=== PATIENT | female | born 1995 | race African-American/Black ===

== ENCOUNTER 2017-02-16 04:19 | Emergency (ER) | payer OTHER, SELFPAY ==
[2017-02-16] MEDS ORDERED: Ondansetron ODT 4 MG TAB ONE (04:51)
[2017-02-16 05:02] LABS: Bilirubin Negative (Negative); Blood, Urine Moderate (Negative); Glucose, Urine (Dipstick) Negative (Negative); Nitrite Negative (Negative); Protein, Urine (Dipstick) Negative (Neg-Trace); pH, Urine 6.5 (5.0-9.0)
[2017-02-16 05:12] LABS: Clarity Hazy (Clear); Leukocyte Trace (Negative); Specific Gravity, Urine 1.028 (1.002-1.036)
[2017-02-16 05:13] LABS: Bacteria/HPF 3+ HPF (None Seen); Pregnancy Test - Urine (BHCG) NEGATIVE (NEGATIVE); Pregu Control Bar Appear? YES (CONTROL BAR); Renal Epithelial 0-3 HPF (0-3); Specific Gravity 1.028 (1.002-1.036); Transitional Epithelial 0-3 HPF (0-3); Yeast-All Forms 1+ HPF (None Seen)
[2017-02-16] MEDS ORDERED: Sulfameth/Trimethoprim DS 800-160mg TAB ONE (05:27)
== END 2017-02-16 05:30 | disposition home or self-care (01) ==
LOC: MADERS 04:19
DX: N39.0 Urinary tract infection, site not specified (principal); E11.9 Type 2 diabetes mellitus without complications; Z79.84 Long term (current) use of oral hypoglycemic drugs
CPT/HCPCS: 36416; 81001; 81025; 87077; 87086; 99284; Q0162

== ENCOUNTER 2017-03-28 14:30 | Emergency (ER) | payer OTHER, SELFPAY ==
[2017-03-28 15:11] LABS: Bilirubin Negative (Negative); Blood, Urine Negative (Negative); Clarity Hazy (Clear); Glucose, Urine (Dipstick) Negative (Negative); Leukocyte Trace (Negative); Nitrite Negative (Negative); Protein, Urine (Dipstick) Negative (Neg-Trace); RBC/HPF 0-3 HPF (0-3); Specific Gravity, Urine 1.025 (1.005-1.030); Urobilinogen 0.2 mg/dL (0.2-1.0); pH, Urine 7.5 (5.0-9.0)
[2017-03-28 15:12] LABS: Bacteria/HPF 3+ HPF (None Seen); Pregnancy Test - Urine (BHCG) Negative (Negative); Pregu Control Background? CLEAR/WHITE (CLR/WHITE); Pregu Control Bar Appear? YES (CONTROL BAR); Specific Gravity 1.025 (1.002-1.036); Transitional Epithelial 0-3 HPF (0-3); Yeast-All Forms 1+ HPF (None Seen)
== END 2017-03-28 15:27 | disposition home or self-care (01) ==
LOC: MADERS 14:30
DX: N39.0 Urinary tract infection, site not specified (principal); R03.0 Elevated blood-pressure reading, without diagnosis of hypertension
CPT/HCPCS: 36416; 81003; 81015; 81025; 87086; 99283

== ENCOUNTER 2017-05-10 21:26 | Emergency (ER) | payer OTHER ==
[2017-05-10] MEDS ORDERED: Naproxen 500 MG TAB ONE (22:20)
[2017-05-10] MEDS ORDERED: Ondansetron ODT 4 MG TAB ONE (22:20)
[2017-05-10] MEDS ORDERED: Metoclopramide HCl 10 MG TAB ONE (22:20)
[2017-05-10 23:39] LABS: Clarity Clear (Clear); Leukocyte Negative (Negative); Nitrite Negative (Negative); Protein, Urine (Dipstick) Negative (Neg-Trace); pH, Urine 5.5 (5.0-9.0)
[2017-05-10 23:40] LABS: Bilirubin Negative (Negative); Blood, Urine Trace (Negative); Glucose, Urine (Dipstick) >=1000 mg/dL (Negative); RBC/HPF 0-3 HPF (0-3); WBC/HPF 0-3 HPF (0-3)
[2017-05-10 23:41] LABS: Bacteria/HPF Rare-Few HPF (None Seen); Squamous Epithelial 0-3 HPF (0-3)
== END 2017-05-10 22:32 | disposition home or self-care (01) ==
LOC: MADERS 21:26
DX: N94.6 Dysmenorrhea, unspecified (principal); R19.7 Diarrhea, unspecified; R11.2 Nausea with vomiting, unspecified; E11.9 Type 2 diabetes mellitus without complications; Z79.84 Long term (current) use of oral hypoglycemic drugs
CPT/HCPCS: 81001; 87077; 87086; 99284; Q0162

== ENCOUNTER → 2017-08-27 | Emergency (ER) | payer OTHER, SELFPAY ==
[~2017-08-27] MED LIST: Acetaminophen/Codeine 30-300mg Tablet ONE; Benzonatate 100 MG CAP ONE; Dexamethasone 4 MG TAB ONE; Ibuprofen 800 MG TAB ONE
== END ==
LOC: MADERS 15:27
DX: J20.8 Acute bronchitis due to other specified organisms (principal); J06.9 Acute upper respiratory infection, unspecified; E11.9 Type 2 diabetes mellitus without complications; Z79.84 Long term (current) use of oral hypoglycemic drugs
CPT/HCPCS: 99283; J8540

== ENCOUNTER 2017-08-30 19:54 | Emergency (ER) | payer SELFPAY ==
[2017-08-30] MEDS ORDERED: cefTRIAXone\\ROCEPHIN 1 GM VIAL ONE (20:57)
[2017-08-30] MEDS ORDERED: Bacitracin Zinc 1 Packet ONE (21:56)
== END 2017-08-30 21:25 | disposition home or self-care (01) ==
LOC: MADERS 19:54
DX: J20.9 Acute bronchitis, unspecified (principal); E11.65 Type 2 diabetes mellitus with hyperglycemia; Z79.84 Long term (current) use of oral hypoglycemic drugs
CPT/HCPCS: 96372; J0696; J2001

== ENCOUNTER 2019-11-30 09:25 | Outpatient (CLI) | payer OTHER ==
--- NOTE | 2019-11-30 09:56 | RAD ---
Exam: Lumbar spine 3 views HISTORY: Chronic pain FINDINGS: 5 lumbar type vertebra. Lumbar spine vertebral body height is maintained. No fracture. No s fahad listhesis or spondylolysis. Disc space heights are preserved Visualized bony pelvis and sacrum are intact IMPRESSION: Unremarkable 3 views lumbar spine
== END 2019-11-30 09:26 | disposition home or self-care (01) ==
LOC: MADRAD 09:25
PROVIDERS: ATTEND Family Medicine
DX: M54.42 Lumbago with sciatica, left side (principal)
CPT/HCPCS: 72100

== ENCOUNTER 2019-12-19 19:35 | Emergency (ER) | payer OTHER ==
[2019-12-19] MEDS ORDERED: Ketorolac Tromethamine 60 MG/2 ML VIAL ONE (20:03)
== END 2019-12-19 20:22 | disposition home or self-care (01) ==
LOC: MADERS 19:35
DX: G43.909 Migraine, unspecified, not intractable, without status migrainosus (principal); E11.9 Type 2 diabetes mellitus without complications; F41.9 Anxiety disorder, unspecified; Z79.899 Other long term (current) drug therapy
CPT/HCPCS: 96372; 99283; J1885

== ENCOUNTER 2020-05-04 13:23 | Emergency (ER) | payer OTHER ==
[2020-05-04] MEDS ORDERED: Sodium Chloride 0.9% 1,000 ML ONE ×2 (14:36→16:42)
[2020-05-04 14:58] LABS: #Lymphocytes 0.7 thou/uL (1.20-3.40); #Monocytes 0.2 thou/uL (0.11-0.59); #Neutrophils 6.8 thou/uL (1.40-6.50); %Basophils 0.5 % (0.0-1.0); %Monocytes 2.7 % (0.0-10.0); %Neutrophils 87.8 % (42.0-75.0); Hemoglobin 14.4 g/dL (12.0-16.0); Mean Corpuscular HGB CONC 30.4 g/dL (32.0-36.0); Mean Corpuscular Hemoglobin 27.9 pg (27.0-31.0); Mean Corpuscular Volume 91.9 fL (78.0-98.0); Mean Platelet Volume 9.2 fL (7.4-10.4); Platelet Count 223 thou/uL (130-400); RBC Distribution Width 11.9 % (11.5-14.5); Red Blood Cell (RBC) Count 5.16 mill/uL (4.20-5.40); White Blood Cell (WBC) Count 7.8 thou/uL (4.8-10.8)
[2020-05-04 15:14] LABS: CRP (Inflammatory) 20.46 mg/dL (= or < 0.5)
[2020-05-04 15:16] LABS: ALT (SGPT) 15 U/L (8-55); AST (SGOT) 19 U/L (5-34); Albumin 3.8 g/dL (3.5-5.0); Alkaline Phosphatase 67 U/L (40-110); Anion Gap 20 mmol/L (10-20); BUN (Urea Nitrogen) 10 mg/dL (7.0-18.7); Bilirubin, Total 0.6 mg/dL (0.2-1.2); CK (CPK) 38 U/L (29-168); Calc. Creatinine Clearance 0 mL/min (70-130); Calcium 8.2 mg/dL (7.8-10.44); Carbon Dioxide 20 mmol/L (22-29); Chloride 97 mmol/L (98-107); Estimated GFR-MDRD 83; Globulin 3.7 g/dL (2.4-3.5); Glucose 389 mg/dL (70-105); Lipase 22 U/L (8-78); Potassium 3.4 mmol/L (3.5-5.1); Protein, Total 7.5 g/dL (6.0-8.3); Sodium 134 mmol/L (136-145)
[2020-05-04] MEDS ORDERED: Ondansetron PF 4 MG/2 ML Vial ONE (15:31)
[2020-05-04] MEDS ORDERED: Ketorolac Tromethamine 30 MG/ML VIAL ONE (15:31)
--- NOTE | 2020-05-04 15:35 | RAD ---
CHEST ONE VIEW: 05/04/20 HISTORY: Dyspnea. FINDINGS: Diminished lung volumes. Patchy interstitial and alveolar opacity suggesting multilobar infiltrate. N o pneumothorax or pleural effusion. IMPRESSION: Diminished lung volumes. Multilobar infiltrates are suspected. Continued surveillance is recommended. POS: [facility]
[2020-05-04] MEDS ORDERED: Azithromycin 500 MG VIAL ONE (16:42)
[2020-05-04] MEDS ORDERED: Sodium Chloride 0.9% 100 ML ONE (16:42)
[2020-05-04] MEDS ORDERED: cefTRIAXone\\ROCEPHIN 2 GM VIAL ONE (16:42)
[2020-05-04] MEDS ORDERED: Sodium Chloride 0.9% 250 ML 250 ML ONE (16:42)
== END 2020-05-04 17:40 | disposition short-term general hospital (02) ==
LOC: MADERS 13:23
DX: J18.9 Pneumonia, unspecified organism (principal); E86.0 Dehydration; R09.02 Hypoxemia; Z20.828 Contact with and (suspected) exposure to other viral communicable diseases; E11.9 Type 2 diabetes mellitus without complications; F41.9 Anxiety disorder, unspecified; Z79.84 Long term (current) use of oral hypoglycemic drugs
CPT/HCPCS: 36415; 71045; 80053; 82150; 82550; 83605; 83690; 84443; 85025; 86140; 87040; 87635; 96361; 96365; 96367; 96372; 96375; J0456; J0696; J1885; J2405; J3490; J7050; U0003

== ENCOUNTER 2021-05-15 09:00 | Outpatient (CLI) | payer BC ==
[2021-05-16 20:02] LABS: Chlamydia by PCR Not Detected (NotDetected); GC by PCR Not Detected (NotDetected)
== END 2021-05-15 09:01 | disposition home or self-care (01) ==
LOC: MADLAB 09:00
PROVIDERS: ATTEND Family Medicine
DX: Z01.419 Encounter for gynecological examination (general) (routine) without abnormal findings (principal)
CPT/HCPCS: 87480; 87491; 87510; 87591; 87660; 88142; G0123

== ENCOUNTER 2022-01-17 13:42 | Emergency (ER) | payer BC ==
[2022-01-17 14:38] LABS: #Basophils 0.1 thou/uL (0.0-0.2); #Eosinphils 0.1 thou/uL (0.0-0.7); #Lymphocytes 1.8 thou/uL (1.20-3.40); #Monocytes 0.3 thou/uL (0.11-0.59); #Neutrophils 3.1 thou/uL (1.40-6.50); %Basophils 1.4 % (0.0-1.0); %Eosinophils 2.1 % (0.0-10.0); %Monocytes 4.9 % (0.0-10.0); %Neutrophils 58.5 % (42.0-75.0); Hemoglobin 14.6 g/dL (12.0-16.0); Mean Corpuscular HGB CONC 32.3 g/dL (32.0-36.0); Mean Corpuscular Hemoglobin 29.6 pg (27.0-31.0); Mean Corpuscular Volume 91.6 fL (78.0-98.0); Mean Platelet Volume 8.1 fL (7.4-10.4); Platelet Count 300 thou/uL (130-400); Red Blood Cell (RBC) Count 4.94 mill/uL (4.20-5.40); White Blood Cell (WBC) Count 5.3 thou/uL (4.8-10.8)
== END 2022-01-17 15:44 | disposition home or self-care (01) ==
LOC: MADERS 13:42
DX: O20.9 Hemorrhage in early pregnancy, unspecified (principal); E11.9 Type 2 diabetes mellitus without complications; Z3A.08 8 weeks gestation of pregnancy
CPT/HCPCS: 36415; 84702; 85025; 99284

== ENCOUNTER 2022-02-18 20:58 | Emergency (ER) | payer BC, MEDICAID ==
[2022-02-18] MEDS ORDERED: Sodium Chloride 0.9% 1,000 ML ONE (22:07)
[2022-02-18] MEDS ORDERED: Ondansetron PF 4 MG/2 ML Vial ONE (22:07)
[2022-02-18 22:30] LABS: BHCG - Serum Negative (NEGATIVE); Pregs Control Background? CLEAR/WHITE (CLR/WHITE); Pregs Control Bar Appear? YES (CONTROL BAR)
[2022-02-18 22:41] LABS: ALT (SGPT) 15 U/L (8-55); AST (SGOT) 11 U/L (5-34); Albumin 3.8 g/dL (3.5-5.0); Alkaline Phosphatase 70 U/L (40-110); Anion Gap 15 mmol/L (10-20); BUN (Urea Nitrogen) 9 mg/dL (7.0-18.7); Bilirubin, Total 0.7 mg/dL (0.2-1.2); Calc. Creatinine Clearance 0 mL/min (70-130); Calcium 8.7 mg/dL (7.8-10.44); Carbon Dioxide 24 mmol/L (22-29); Chloride 104 mmol/L (98-107); Glucose 303 mg/dL (70-105); Lipase 20 U/L (8-78); Magnesium 1.7 mg/dL (1.6-2.6); Potassium 3.8 mmol/L (3.5-5.1); Protein, Total 6.8 g/dL (6.0-8.3); Sodium 139 mmol/L (136-145)
[2022-02-18 22:52] LABS: #Eosinphils 0.1 thou/uL (0.0-0.7); #Lymphocytes 1.9 thou/uL (1.20-3.40); #Monocytes 0.4 thou/uL (0.11-0.59); #Neutrophils 3.3 thou/uL (1.40-6.50); %Basophils 0.4 % (0.0-1.0); %Lymphocytes 32.4 % (21.0-51.0); %Monocytes 6.9 % (0.0-10.0); %Neutrophils 58.3 % (42.0-75.0); Hemoglobin 12.6 g/dL (12.0-16.0); Mean Corpuscular HGB CONC 31.8 g/dL (32.0-36.0); Mean Corpuscular Hemoglobin 29.9 pg (27.0-31.0); Mean Corpuscular Volume 94.1 fL (78.0-98.0); Mean Platelet Volume 9.8 fL (7.4-10.4); Platelet Count 233 thou/uL (130-400); RBC Distribution Width 11.8 % (11.5-14.5); Red Blood Cell (RBC) Count 4.23 mill/uL (4.20-5.40); White Blood Cell (WBC) Count 5.7 thou/uL (4.8-10.8)
[2022-02-18] MEDS ORDERED: Ketorolac Tromethamine 30 MG/ML VIAL ONE (23:16)
== END 2022-02-18 23:35 | disposition home or self-care (01) ==
LOC: MADERS 20:58
DX: A08.4 Viral intestinal infection, unspecified (principal); E11.9 Type 2 diabetes mellitus without complications; Z79.84 Long term (current) use of oral hypoglycemic drugs; Z79.899 Other long term (current) drug therapy
CPT/HCPCS: 80053; 83690; 83735; 84703; 85025; 87804; 96374; 96375; J1885; J2405; J7050

== ENCOUNTER 2022-07-18 16:59 | Emergency (ER) | payer BC, MEDICAID ==
[2022-07-18] MEDS ORDERED: Ketorolac Tromethamine 60 MG/2 ML VIAL ONE (18:13)
== END 2022-07-18 18:28 | disposition home or self-care (01) ==
LOC: MADERS 16:59
DX: G43.909 Migraine, unspecified, not intractable, without status migrainosus (principal); E11.9 Type 2 diabetes mellitus without complications; Z79.84 Long term (current) use of oral hypoglycemic drugs
CPT/HCPCS: 96372; 99283; J1885